=== PATIENT | male | born 1955 | race Caucasian/White ===

== ENCOUNTER 2020-09-25 15:00 | Emergency (ER) | payer BC, MEDICAID ==
[2020-09-25] MEDS ORDERED: Sodium Chloride 0.9% 10 ML Syringe FLUSH PRN (15:03)
[2020-09-25] MEDS ORDERED: Sodium Chloride 0.9% 1,000 ML IV SCH (15:15)
[2020-09-25] MEDS ORDERED: Ondansetron 4 MG/2 ML SDV IVPUSH ONE (15:57)
[2020-09-25] MEDS ORDERED: Ondansetron 4 MG/2 ML SDV ONE (16:08)
--- NOTE | 2020-09-25 16:34 | EDM.PDOC ---
ED HPI GENERAL MEDICAL PROBLEM - General Stated Complaint: DEHYDRATION Time Seen by Provider: 09/25/20 15:10 Source of Information: Reports: Patient History Limitations: Reports: No Limitations - History of Present Illness INITIAL COMMENTS - FREE TEXT/NARRATIVE: Patient presented to the ED because of near syncopal episode and nausea. He apparently was trying to walk to his brother's office,felt dizzy and before falling down he went to the restroom, leaned his left shoulder against the wall then fell on his buttock. He didn't sustain any injury except for a skin tear on his left elbow. There was no LOC after the fall. He described the vertgo as spinning sensation followed by nausea and vomiting x1. Treatments RN EMERGENCY ROOM: Reports: IV/IO, Other Medication(s), See EMS Report, Other (see below) Other Treatments RN EMERGENCY ROOM: iv fluids/zofran - Related Data Allergies Allergy/AdvReac Type Severity Reaction Status Date / Time No Known Allergies Allergy Verified 09/25/20 15:21 Home Meds: Home Meds Meclizine [Antivert] 25 mg PO Q6H PRN #15 tab 09/25/20 [Rx] Ondansetron [Zofran ODT] 4 mg PO Q4H PRN #7 tab.dis 09/25/20 [Rx] Social & Family History - Tobacco Use Tobacco Use Status *Q: Former Tobacco User Years of Tobacco use: 40 Packs/Tins Daily: 1 Used Tobacco, but Quit: Yes Month/Year Tobacco Last Used: July 2020 - Caffeine Use Caffeine Use: Reports: None - Recreational Drug Use Recreational Drug Use: No ED ROS GENERAL - Review of Systems Review Of Systems: See Below Constitutional: Reports: No Symptoms HEENT: Reports: No Symptoms Respiratory: Reports: No Symptoms Cardiovascular: Reports: No Symptoms Endocrine: Reports: No Symptoms GI/Abdominal: Reports: No Symptoms : Reports: No Symptoms Musculoskeletal: Reports: No Symptoms Skin: Reports: No Symptoms Neurological: Reports: Dizziness Psychiatric: Reports: No Symptoms ED EXAM, GENERAL - Physical Exam Exam: See Below Exam Limited By: No Limitations General Appearance: Alert, No Apparent Distress Ears: Normal External Exam, Normal Canal Nose: Normal Inspection, Normal Mucosa, No Blood Throat/Mouth: Normal Inspection Head: Atraumatic, Normocephalic Neck: Normal Inspection, Supple, Non-Tender Respiratory/Chest: No Respiratory Distress, Lungs Clear, Normal Breath Sounds Cardiovascular: Normal Peripheral Pulses, Regular Rate, Rhythm, No Edema, No JVD, No Murmur GI/Abdominal: Normal Bowel Sounds, Soft, Non-Tender Back Exam: Normal Inspection, Full Range of Motion Extremities: Normal Inspection, Normal Range of Motion, Non-Tender Neurological: Alert, Oriented, CN II-XII Intact, Normal Cognition #1 Interpretation EKG Date: 09/25/20 Time: 15:03 Rhythm: NSR Rate (Beats/Min): 63 [place]: Normal P-Wave: Present QRS: Other (LAFB) ST-T: Normal QT: Normal Comparison: NA - No Prior EKG EKG Interpretation Comments: NSR RBB LAFB Course - Vital Signs Text/Narrative:: Lab/EKG result was reviewed and discussed with patient NS 1 L bolus Zofran 4 mg IV x 2 dose Toradol 30 mg IV x1 Meclizine 50 mg PO x1 Ativan 1 mg IV x1 Last Recorded V/S: Last Vital Signs Temp 36.2 C 09/25/20 15:00 Pulse 71 09/25/20 19:30 Resp 16 09/25/20 19:30 BP 122/56 L 09/25/20 19:30 Pulse Ox 97 09/25/20 19:30 - Orders/Labs/Meds Orders: Active Orders 24 hr Category Date Time Status Saline Lock Insert [OM.PC] Routine Oth 09/25/20 15:03 Ordered EKG 12 Lead [EK] Routine Ther 09/25/20 15:04 Ordered Labs: Laboratory Tests 09/25/20 09/25/20 09/25/20 Range/Units 15:25 15:25 15:25 WBC 9.4 (3.2-10.1) x10-3/uL RBC 5.11 (3.90-5.90) x10(6)uL Hgb 14.6 (12.9-17.7) g/dL Hct 43.4 (38.3-50.1) % MCV 85.0 (80.8-98.7) fL MCH 28.6 (27.0-33.3) pg MCHC 33.6 (28.7-35.3) g/dL RDW 15.2 H (12.4-15.0) % Plt Count 322 (117-477) x10(3)uL MPV 7.1 (6.7-11.0) fL Neut % (Auto) 78.2 H (40.3-71.8) % Lymph % (Auto) 13.5 L (15.8-45.3) % [place] % (Auto) 6.6 (5.5-15.2) % Eos % (Auto) 1.2 (0.1-6.8) % Baso % (Auto) 0.5 (0.3-3.8) % Neut # (Auto) 7.4 H (1.7-6.9) x10-3/uL Lymph # (Auto) 1.3 (0.5-4.5) x10-3/uL [place] # (Auto) 0.6 (0.0-1.2) x10-3/uL Eos # (Auto) 0.1 (0.0-0.6) x10-3/uL Baso # (Auto) 0.0 (0.0-0.3) x10-3/uL Sodium 141 (135-145) mmol/L Potassium 3.9 (3.5-5.3) mmol/L Chloride 104 (100-110) mmol/L Carbon Dioxide 27 (21-32) mmol/L BUN 20 H (7-18) mg/dL Creatinine 1.0 (0.70-1.30) mg/dL Est Cr Clr Drug Dosing TNP Estimated GFR (MDRD) > 60 (>60) BUN/Creatinine Ratio 20.0 (9-20) Glucose 113 (80-116) mg/dL Calcium 8.3 L (8.6-10.2) mg/dL Troponin I 6.2 (4.0-60.3) pg/mL Meds: Medications Discontinued Medications Generic Name Dose Route Start Last Admin Trade Name Freq PRN Reason Stop Dose Admin Sodium Chloride 1,000 mls @ 999 mls/hr 09/25/20 15:15 09/25/20 15:23 Normal Saline IV 999 mls/hr ASDIRECTED SHIREEN Administration Ketorolac Tromethamine 30 mg 09/25/20 16:43 09/25/20 16:49 Ketorolac 30 Mg/Ml Sdv IVPUSH 09/25/20 16:44 30 mg NOW STA Administration Lorazepam 1 mg 09/25/20 17:17 09/25/20 17:28 Lorazepam 2 Mg/Ml Sdv IVPUSH 09/25/20 17:18 1 mg NOW STA Administration Meclizine HCl 50 mg 09/25/20 17:03 09/25/20 17:06 Meclizine 25 Mg Tab PO 09/25/20 17:04 50 mg NOW STA Administration Ondansetron HCl 4 mg 09/25/20 15:57 09/25/20 16:08 Ondansetron 4 Mg/2 Ml Sdv IVPUSH 09/25/20 15:58 4 mg ONETIME ONE Administration Ondansetron HCl Confirm 09/25/20 16:08 09/25/20 16:18 Ondansetron 4 Mg/2 Ml Sdv Administered 09/25/20 16:09 Not Given Dose 4 mg .ROUTE .STK-MED ONE Sodium Chloride 10 ml 09/25/20 15:03 Sodium Chloride 0.9% 10 Ml Syringe FLUSH ASDIRECTED PRN Keep Vein Open Departure - Departure Time of Disposition: 16:40 Disposition: Home, Self-Care 01 Condition: Good Clinical Impression: Near syncope, Dehydration, BPV (benign positional vertigo), Left shoulder strain - Discharge Information Prescriptions: Meclizine [Antivert] 25 mg PO Q6H PRN #15 tab PRN Reason: vertigo Ondansetron [Zofran ODT] 4 mg PO Q4H PRN #7 tab.dis PRN Reason: Nausea Instructions: Near-Syncope, Dehydration, Adult, [id number], Benign Positional Vertigo Referrals: Brandon García MD [Primary Care Provider] - Forms: ED Department Discharge Additional Instructions: Please read discharge instructions on near syncope and dehydration Drink at least 2 liters of fluid daily Meclizine 25 mg every 6 hours as needed for vertigo Zofran ODT 4 mg every 4 hours as needed for nausea. Take Ibuprofen 800 mg with tylenol 1000 mg every 8 hours as needed for your shoulder pain Follow up with your doctor so he can refer you to see a payable processor(on site services specialist) for your abnormal EKG Sepsis Event Note (ED) - Evaluation Sepsis Screening Result: No Definite Risk - Focused Exam Vital Signs: Vital Signs Pulse Resp BP Pulse Ox 09/25/20 19:30 71 16 122/56 L 97 - My Orders Last 24 Hours: My Active Orders 09/25/20 15:03 Saline Lock Insert [OM.PC] Routine 09/25/20 15:04 EKG 12 Lead [EK] Routine - Assessment/Plan Last 24 Hours: My Active Orders 09/25/20 15:03 Saline Lock Insert [OM.PC] Routine 09/25/20 15:04 EKG 12 Lead [EK] Routine
[2020-09-25] MEDS ORDERED: Ketorolac 30 MG/ML SDV IVPUSH STA (16:43)
[2020-09-25] MEDS ORDERED: Meclizine 25 MG Tab PO STA (17:03)
[2020-09-25] MEDS ORDERED: LORazepam 2 MG/ML SDV IVPUSH STA (17:17)
== END 2020-09-25 20:00 | disposition home or self-care (01) ==
LOC: FB.ED 15:00
DX: S46.812A Strain of other muscles, fascia and tendons at shoulder and upper arm level, left arm, initial encounter (principal); R55 Syncope and collapse; H81.10 Benign paroxysmal vertigo, unspecified ear; E86.0 Dehydration; Z87.891 Personal history of nicotine dependence; W18.39XA Other fall on same level, initial encounter
CPT/HCPCS: 36415; 80048; 84484; 85025; 93005; 96374; 96375; 99284-25; A9270-GY; J1885; J2060; J2405; J7030

== ENCOUNTER 2023-04-12 07:59 | Day surgery (SDC) | payer MEDICARE, OTHER ==
[2023-04-12] MEDS ORDERED: Midazolam 1 MG/ML 2 ML SDV IV ONE (08:00)
[2023-04-12] MEDS ORDERED: Propofol 200 MG/20 ML SDV IV ONE (08:00)
[2023-04-12] MEDS ORDERED: Lactated Ringers 1,000 ML IV SCH (08:15)
[2023-04-12] MEDS ORDERED: Sodium Chloride 0.9% 10 ML Syringe FLUSH PRN (08:15)
[2023-04-12] MEDS ORDERED: Simethicone Drops 40 MG/0.6 ML 30 ML Bottle PO ONE (10:11)
== END 2023-04-12 12:00 | disposition home or self-care (01) ==
LOC: FB.SDS 07:59
PROVIDERS: ATTEND Surgery
DX: Z12.11 Encounter for screening for malignant neoplasm of colon (principal); J44.9 Chronic obstructive pulmonary disease, unspecified; F32.A Depression, unspecified; E11.9 Type 2 diabetes mellitus without complications; I10 Essential (primary) hypertension; G47.30 Sleep apnea, unspecified; E66.01 Morbid (severe) obesity due to excess calories; Z98.890 Other specified postprocedural states; Z79.899 Other long term (current) drug therapy; Z90.49 Acquired absence of other specified parts of digestive tract; Z87.891 Personal history of nicotine dependence; Z68.41 Body mass index [BMI] 40.0-44.9, adult; Z88.8 Allergy status to other drugs, medicaments and biological substances
CPT/HCPCS: A9270; G0121; J2250; J2704; J7120; 00811